=== PATIENT | female | born 1995 | race Hispanic/Latino ===

== ENCOUNTER 2022-04-26 03:54 | Emergency (ER) | payer SELFPAY ==
--- OUTSIDE RECORDS SUMMARY | 2022-04-26 03:58 | XMS REPORT | Continuity of Care Document ---
:1995 Author Organization [facility] Address 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 Medications Ordered Filled Start Stop Current Ordering Indication Dosage Frequency Signature Comments Components Source Medication Medication Date Date Medication? Clinician (SIG) Name Name Sprintec 28 Sprintec 28 2019-0 Yes Mary 1 tablet Common -17 Beal [facility] 00:00: - [facility] 00 [facility] Neomycin-Ba Neomycin-Ba 2020-0 2020- No Mary 1 Common citracin citracin 1-17 05-24 Beal applicatio Spirit Zn-Polymyx Zn-Polymyx 00:00: 00:00 n - [facility] 00 :00 [facility] Procedures This patient has no known procedures. Encounters Start End Encounter Admission Attending Care Care Encounter Source Date/Time Date/Time Type Type Clinicians Facility Department ID 2021-05-26 Outpatient FLAKITO Talamantes [facility] [id number] Common 14:13:40 Linda [id number] [facility] 2021-05-26 Outpatient FLAKITO Beal [facility] [id number] Common 11:22:26 Mary [id number] [facility] 2021-05-26 Outpatient FLAKITO Beal [facility] [id number] Common 11:07:01 Mary [id number] [facility] 2021-05-[address] [facility] [id number] Common 11:01:31 Mary [id number] [facility] 2021-11-19 2021-11-19 Outpatient AMBREEN_FAR PAHOP [facility] [id number] 10:57:00 10:57:00 AGNIESZKA 0722 da [facility] Program 2019-05-17 2019-05-17 Outpatient [facility] [id number] Common 14:00:00 14:00:00 [facility] Results This patient has no known results.
[2022-04-26 04:25] LABS: Urine Blood Trace-intact (Negative); Urine Glucose Negative (Negative); Urine Protein Negative (Negative); Urine Specific Gravity 1.025 (1.005-1.030); Urine pH 6.5 (5.0-7.0)
[2022-04-26 04:52] LABS: Absolute Lymphocytes (CBC) 2.8 K/uL (0.7-4.9); Hematocrit 39.3 % (36.0-45.0); Lymphocytes % 24.1 % (15.3-44.8); MCV 90.6 fL (80-100); MPV 10.7 fL (7.6-11.3); RBC Red Blood Cell Count 4.33 M/uL (3.86-4.86)
[2022-04-26 04:59] LABS: Urine Bacteria <20 /HPF (<20); Urine Mucus Slight /HPF (None Seen)
[2022-04-26 05:06] LABS: Albumin 3.4 g/dL (3.4-5.0); Bilirubin Total 0.6 mg/dL (0.2-1.0); Potassium 3.2 mmol/L (3.5-5.1); Protein, Total 7.3 g/dL (6.4-8.2)
--- NOTE | 2022-04-26 05:41 | ER ---
Nurse's Notes [facility] Name: Subha Mueller Age: 26 yrs Sex: Female : 1995 Arrival Date: 04/26/2022 Time: 03:56 Bed 7 Private MD: Diagnosis: UTI/ Urinary tract infection, site not specified Presentation: 04/26 04:14 Chief complaint: Patient states: C/o urinary frequency and burning, and low back pain ll3 to left side 07/08. Coronavirus screen: Vaccine status: Patient reports being unvaccinated. At this time, the client does not indicate any symptoms associated with coronavirus-19. Ebola Screen: No symptoms or risks identified at this time. Initial Sepsis Screen: Does the patient meet any 2 criteria? No. Patient's initial sepsis screen is negative. Does the patient have a suspected source of infection? No. Patient's initial sepsis screen is negative. Risk Assessment: Do you want to hurt yourself or someone else? Patient reports no desire to harm self or others. Onset of symptoms was April 22, 2022. 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 - Social history:: Smoking status: Patient denies any tobacco usage or history of. - Family history:: not pertinent. - Hospitalizations: : No recent hospitalization is reported. Screenin:29 [facility] ED Fall Risk Assessment (Adult) History of falling in the last 3 months, pf1 including since admission No falls in past 3 months (0 pts) Confusion or Disorientation No (0 pts) Intoxicated or Sedated No (0 pts) Impaired Gait No (0 pts) Mobility Assist Device Used No (0 pt) Altered Elimination No (0 pt) Score/Fall Risk Level 0 - 2 = Low Risk. [facility] ED Fall Risk Assessment (Adult) Score/Fall Risk Level 0 - 2 = Low Risk Oriented to surroundings, Maintained a safe environment, Educated pt \T\ family on fall prevention, incl call for assistance when getting out of bed, Assessed \T\ reinforced patient's understanding of fall precautions, Provided non-skid footwear, Hourly rounding (assess needs \T\ fall precautionary measures) done, Used ambulatory aids as needed (educated on \T\ assisted with), Used gait belt as appropriate. Abuse screen: Denies threats or abuse. Nutritional screening: No deficits noted. Tuberculosis screening: No symptoms or risk factors identified. Assessment: 04:22 General: Appears in no apparent distress. comfortable, well groomed, well developed, pf1 Behavior is calm, cooperative, appropriate for age, quiet. Pain: Complains of pain in Patient C/O left lower back pain of 3,onset 3 days. Neuro: No deficits noted. Level of Consciousness is awake, alert, obeys commands, Oriented to person, place, time, situation. Cardiovascular: No deficits noted. Capillary refill < 3 seconds. Respiratory: No deficits noted. Airway is patent Respiratory effort is even, unlabored, Respiratory pattern is regular, symmetrical. GI: No deficits noted. Abdomen is round non-distended, Bowel sounds present X 4 quads. Reports nausea. : Reports urinary frequency, onset 6 days. EENT: No deficits noted. No signs and/or symptoms were reported regarding the EENT system. Derm: No deficits noted. No signs and/or symptoms reported regarding the dermatologic system. Musculoskeletal: No deficits noted. No signs and/or symptoms reported regarding the musculoskeletal system. 05:30 Reassessment: Patient appears in no apparent distress at this time. No changes from pf1 previously documented assessment. Patient and/or family updated on plan of care and expected duration. Pain level reassessed. Patient is alert, oriented x 3, equal unlabored respirations, skin warm/dry/pink. Patient states feeling better. Patient states symptoms have improved. Vital Signs: 04:14 BP 140 / 81; Pulse 80; Resp 17; Temp 97.5(O); Pulse Ox 99% on R/A; Weight 67.59 kg (R); ll3 Height 4 ft. 11 in. (149.86 cm) (R); Pain 3/10; 05:31 BP 112 / 75; Pulse 78; Resp 18; Pulse Ox 99% on R/A; Pain 3/10; pf1 04:14 Body Mass Index 30.09 (67.59 kg, 149.86 cm) 3 ED Course: 03:56 Patient arrived in ED. jj6 03:57 Edison Becker MD is Attending Physician. rn 04:16 Triage completed. 3 04:16 Arm band placed on Patient placed in an exam room, on a stretcher, on pulse oximetry. 3 04:22 Raven chen, RN is Primary Nurse. pf1 04:35 No provider procedures requiring assistance completed. Inserted saline lock: 20 gauge pf1 in right antecubital area, using aseptic technique. Blood collected. 04:42 Patient has correct armband on for positive identification. Placed in gown. Bed in low pf1 position. Call light in reach. 04:42 CBC with Diff Sent. pf1 04:42 CMP Sent. pf1 04:42 Lipase Sent. pf1 04:53 CT Stone Protocol In Process Unspecified. EDMS 05:48 IV discontinued, intact, bleeding controlled, No redness/swelling at site. Pressure jb4 dressing applied. Administered Medications: No medications were administered Medication: 05:48 VIS not applicable for this client. jb4 Outcome: 05:41 Discharge ordered by . rn 05:48 Discharged to home ambulatory. jb4 05:48 Condition: stable 05:48 Discharge instructions given to patient, Instructed on discharge instructions, follow up and referral plans. medication usage, Demonstrated understanding of instructions, follow-up care, medications, Prescriptions given X 2. 05:48 Patient left the ED. jb4 Signatures: Dispatcher [employer] EDMD Edison Becker MD MD rn Bryson, James RN RN jb4 Bhakti Chávez 6 Lars Keane RN RN 3 Raven chen, RN RN pf1
--- NOTE | 2022-04-26 05:41 | EDPHYS ---
Physician Documentation [facility] Name: Subha Mueller Age: 26 yrs Sex: Female : 1995 Arrival Date: 04/26/2022 Time: 03:56 Bed 7 Private MD: ED Physician Edison Becker HPI: 04/26 04:14 This 26 yrs old Female presents to ER via Unassigned with complaints of rn urinary problems, low back pain. 04:15 The patient presents with urinary symptoms, frequency, urgency. Onset: The rn symptoms/episode began/occurred 3 day(s) ago. Modifying factors: The symptoms are alleviated by nothing, the symptoms are aggravated by urinating. Associated signs and symptoms: Pertinent positives: urinary frequency, Pertinent negatives: fever, vaginal discharge, vomiting. Severity of symptoms: At their worst the symptoms were mild, in the emergency department the symptoms are unchanged. The patient has not experienced similar symptoms in the past. The patient has not recently seen a physician. Pt reports 3 days of increased urinary frequency, low back pain, mild LLQ abd pain. No fever. No vomiting/diarrhea. No hx of kidney stones. NO famhx of kidney stones.. 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 - Social history:: Smoking status: Patient denies any tobacco usage or history of. - Family history:: not pertinent. - Hospitalizations: : No recent hospitalization is reported. ROS: 04:15 Constitutional: Negative for fever, chills, and weight loss, Eyes: Negative for injury, rn pain, redness, and discharge, Cardiovascular: Negative for chest pain, palpitations, and edema, Respiratory: Negative for shortness of breath, cough, wheezing, and pleuritic chest pain, Abdomen/GI: + LLQ abd pain Back: + low back pain : + increased urinary frequency MS/Extremity: Negative for injury and deformity, Skin: Negative for injury, rash, and discoloration, Neuro: Negative for headache, weakness, numbness, tingling, and seizure. Exam: 04:15 Constitutional: This is a well developed, well nourished patient who is awake, alert, rn and in no acute distress. Head/Face: Normocephalic, atraumatic. Cardiovascular: Regular rate and rhythm. No pulse deficits. Abdomen/GI: soft, no peritoneal signs, no focal tenderness Back: No spinal tenderness. No costovertebral tenderness. Full range of motion. Skin: Warm, dry Vital Signs: 04:14 BP 140 / 81; Pulse 80; Resp 17; Temp 97.5(O); Pulse Ox 99% on R/A; Weight 67.59 kg (R); ll3 Height 4 ft. 11 in. (149.86 cm) (R); Pain 3/10; 05:31 BP 112 / 75; Pulse 78; Resp 18; Pulse Ox 99% on R/A; Pain 3/10; pf1 04:14 Body Mass Index 30.09 (67.59 kg, 149.86 cm) ll3 MDM: 03:57 Patient medically screened. rn 05:40 Differential diagnosis: appendicitis, kidney stone, ovarian cyst, urinary tract rn infection. Data reviewed: vital signs, nurses notes, lab test result(s), radiologic studies, CT scan, and as a result, I will discharge patient. Counseling: I had a detailed discussion with the patient and/or guardian regarding: the historical points, exam findings, and any diagnostic results supporting the discharge/admit diagnosis, lab results, radiology results, the need for outpatient follow up, to return to the emergency department if symptoms worsen or persist or if there are any questions or concerns that arise at home. Special discussion: I discussed with the patient/guardian in detail that at this point there is no indication for admission to the hospital. It is understood, however, that if the symptoms persist or worsen the patient needs to return immediately for re-evaluation. 04/26 04:11 Order name: Urine Culture rn 04/26 04:11 Order name: Urine Microscopic Only; Complete Time: 05:08 rn 04/26 04:25 Order name: Urine Dipstick-Ancillary; Complete Time: 04:26 EDMS 04/26 04:27 Order name: CBC with Diff; Complete Time: 05:08 rn 04/26 04:27 Order name: CMP; Complete Time: 05:08 rn 04/26 04:27 Order name: Lipase; Complete Time: 05:08 rn 04/26 04:11 Order name: Urine Dipstick-Ancillary (obtain specimen); Complete Time: 04:28 rn 04/26 04:11 Order name: Urine Test (obtain specimen); Complete Time: 04:28 rn 04/26 04:27 Order name: IV Saline Lock; Complete Time: 04:42 rn 04/26 04:27 Order name: Labs collected and sent; Complete Time: 04:42 rn 04/26 04:27 Order name: CT Stone Protocol rn 04/26 05:41 Order name: Urine --Ancillary (enter results) mw2 Administered Medications: No medications were administered Disposition Summary: 04/26/22 05:41 Discharge Ordered Location: Home rn Problem: new rn Symptoms: have improved rn Condition: Stable rn Diagnosis - UTI/ Urinary tract infection, site not specified rn Followup: rn - With: Private Physician - When: As needed - Reason: Recheck today's complaints, Re-evaluation by your physician Discharge Instructions: - Discharge Summary Sheet rn - Urinary Tract Infection, Adult rn Forms: - Medication Reconciliation Form rn - Thank You Letter rn - 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
[2022-04-26 05:55] LABS: Urine Specific Gravity/Preg 1.025 (1.005-1.030)
[2022-04-26 05:58] VITALS: TEMP 97.5; O2SAT 99
[2022-04-26 06:12] VITALS: BP 112/75
--- NOTE | 2022-04-26 13:40 | RAD REPORT ---
EXAM DESCRIPTION: CT Abdomen and Pelvis Without Intravenous Contrast CLINICAL HISTORY: The patient is 26 years old and is Female; left flank and LLQ abd pain TECHNIQUE: Axial computed tomography images of the abdomen and pelvis without intravenous contrast. Sagittal and coronal reformatted images were created and reviewed. This CT exam was performed usi ng one or more of the following dose reduction techniques: automated exposure control, adjustment o f the mA and/or kV according to patient size, and/or use of iterative reconstruction technique. COMPARISON: No relevant prior studies available. FINDINGS: Lung bases: Unremarkable. No mass. No consolidation. ABDOMEN: Liver: Unremarkable. Gallbladder and bile ducts: Unremarkable. No calcified stones. No ductal dilation. Pancreas: Unremarkable. No ductal dilation. Spleen: Unremarkable. No splenomegaly. Adrenals: Unremarkable. No mass. Kidneys and ureters: No nephrolithiasis, hydronephrosis or ureter stone. Stomach and bowel: Colonic diverticulosis throughout the colon. No findings to suggest colitis o r diverticulitis. No bowel dilatation or obstruction. No bowel wall thickening. PELVIS: Appendix: Normal appendix. No findings to suggest acute appendicitis. Bladder: Bladder is not well distended. No stones. Reproductive: Unremarkable as visualized. ABDOMEN and PELVIS: Intraperitoneal space: Unremarkable. No free air. No significant fluid collection. Bones/joints: No acute fracture visualized. No dislocation. Soft tissues: Unremarkable. Vasculature: Unremarkable. No abdominal aortic aneurysm. Lymph nodes: No pathologically enlarged lymph nodes. IMPRESSION: 1. No nephrolithiasis, hydronephrosis or ureter stone. 2. Colonic diverticulosis. Electronically signed by: Devora Adames MD 04/26/2022 5:08 AM FLAVOR MAKER Due to temporary technical issues with the PACS/Fluency reporting system, reports are being signed by the in house radiologists without review as a courtesy to insure prompt reporting. The interpreting radiologist is fully responsible for the content of the report.
== END 2022-04-26 05:48 | disposition home or self-care (01) ==
LOC: ER 03:54
DX: N39.0 Urinary tract infection, site not specified (principal)
CPT/HCPCS: 36415; 74176; 76377; 80053; 81003; 81015; 81025; 83690; 85025; 87077; 87086; 87088; 87186; 99284